=== PATIENT | male | born 1980 | race Caucasian/White ===

== ENCOUNTER 2020-06-27 17:08 | Emergency (ER) | payer OTHER, SELFPAY ==
--- NOTE | 2020-06-27 17:13 | ED.DENTAL ---
HPI - Dental/Oral General Chief complaint: Dental/Oral Stated complaint: oral pain Time Seen by Provider: 06/27/20 17:09 Source: patient Mode of arrival: Ambulatory Limitations: no limitations History of Present Illness HPI Narrative: 39-year-old male nonsmoker noncontributory medical history presents with a chief complaint of severe left lower jaw pain and swelling over the course of the day. He has got a known ?bad ?to with and his dentist has told him he needs a root canal followed by crown. Denies any fever chills no difficulty swallowing though does have pain opening his jaw. He denies fever, chills, N/V Teeth map: 1. Onset (ago): hour(s) Duration: constant Severity: moderate Relieving factors: nothing Exacerbating factors: chewing Context: history of dental caries Treatment prior to arrival: none Related Data Previous Rx's Medication Instructions Recorded amoxicillin-pot clavulanate 1 tab PO BID #20 tab 06/27/20 [Augmentin] Allergies Allergy/AdvReac Type Severity Reaction Status Date / Time No Known Drug Allergies Allergy Verified 06/27/20 18:27 Review of Systems Constitutional Constitutional: Denies chills, Denies fatigue, Denies fever(s), Denies frequent falls, Denies lethargy and Denies weakness Eyes Eyes: Denies change in vision, Denies eye discharge, Denies irritation and Denies loss of vision ENT Ears, Nose, Mouth, and Throat: Denies change in voice, Reports dental pain, Denies dizziness, Denies neck pain, Denies sore throat and Denies throat swelling Comments: facial swelling Cardiovascular Cardiovascular: Denies chest pain, Denies irregular heart rhythm, Denies lightheadedness, Denies palpitations, Denies dyspnea, Denies dyspnea on exertion and Denies orthopnea Respiratory Respiratory: Denies cough, Denies dyspnea, Denies dyspnea on exertion and Denies wheezing Gastrointestinal Gastrointestinal: Denies abdominal pain, Denies change in bowel habits, Denies diarrhea, Denies nausea and Denies vomiting Musculoskeletal Musculoskeletal: Denies neck pain and Denies numbness Integumentary/Breasts Skin/Breast: Denies pruritus, Denies erythema, Denies rash and Denies wounds Neurologic Neurologic: Denies behavioral changes, Denies confusion, Denies dizziness, Denies frequent falls, Denies loss of vision, Denies numbness and Denies weakness Psychiatric Psychiatric: Denies anxiety, Denies behavioral changes, Denies confusion, Denies depression, Denies homicidal ideation and Denies suicidal ideation Endocrine Endocrine: Denies fatigue, Denies flushing and Denies palpitations Hematologic/Lymphatic Hematologic/Lymphatic: Denies easy bruising Allergic/Immunologic Allergic/Immunologic: Denies urticaria, Denies throat swelling and Denies wheezing Patient History Social History Smoking Status: Never smoker alcohol intake frequency: 0-2 drinks per day Substance Use Type: does not use Exam Narrative Exam Narrative: GENERAL: [39] year old patient appears stated age. Well-nourished, well-developed patient, in mild distress. HEAD:Swelling of left lower jaw, no fluctuance, redness. EYES: Pupils equal round and reactive. Extraocular motions intact. No scleral icterus. No injection or drainage. ENT: Poor dentition, noted erosion of #20 without fluctuance or internal swelling. Nose without bleeding, purulent drainage. Throat without erythema, tonsillar hypertrophy or exudate. Airway patent. NECK: Trachea midline. Non tender CARDIOVASCULAR: Regular rate and rhythm without murmurs, gallops, or rubs. RESPIRATORY: Clear to auscultation. Breath sounds equal bilaterally. No wheezes, rales, or rhonchi. GASTROINTESTINAL: Abdomen soft, non-tender, nondistended. EXTREMITIES: No edema or joint tenderness. BACK: Nontender without deformity or crepitance. No flank tenderness. NEURO: AOx3. SKIN: No rash or erythema of visible areas Initial Vital Signs Initial Vital Signs: Vital Signs Temperature 98.5 F 06/27/20 17:15 Pulse Rate 80 06/27/20 17:15 Respiratory Rate 18 06/27/20 17:15 Blood Pressure 169/97 H 06/27/20 17:15 Pulse Oximetry 96 06/27/20 17:15 Course Orders Ordered: Discontinued Medications Hydrocodone Bitart/Acetaminophen (Vicodin 5/325 Prepack) 1 bottle MISC SEEINSTR ONE Stop: 06/27/20 18:13 Last Admin: 06/27/20 18:32 Dose: 1 bottle Documented by: ANTONI Amoxicillin/Clavulanate Potassium (Augmentin 875-125 Mg) 1 tab PO NOW ONE Stop: 06/27/20 18:13 Last Admin: 06/27/20 18:32 Dose: 1 tab Documented by: ANTONI Dexamethasone (Decadron) 10 mg IV NOW ONE Stop: 06/27/20 17:22 Last Admin: 06/27/20 17:30 Dose: 10 mg Documented by: MARTIN Sodium Chloride (Normal Saline 0.9%) 1,000 mls @ 1,000 mls/hr IV BOLUS ONE Stop: 06/27/20 18:20 Last Infusion: 06/27/20 18:56 Dose: 0 mls/hr Documented by: Admin: 06/27/20 17:29 Dose: 1,000 mls/hr Documented by: MARTIN Ampicillin Sodium/Sulbactam (Sodium 3 gm/ Sodium Chloride) 100 mls @ 100 mls/hr IV NOW ONE Stop: 06/27/20 17:22 Last Infusion: 06/27/20 18:56 Dose: 0 mls/hr Documented by: Admin: 06/27/20 17:27 Dose: 100 mls/hr Documented by: MARTIN Ketorolac Tromethamine (Toradol) 15 mg IV NOW ONE Stop: 06/27/20 17:22 Last Admin: 06/27/20 17:30 Dose: 15 mg Documented by: MARTIN Vital Signs Vital signs: Vital Signs - 8 hr 06/27/20 17:15 Temperature 98.5 F Pulse Rate 80 Respiratory Rate 18 Blood Pressure 169/97 H Pulse Oximetry 96 MDM - Dental/Oral Lab Data Result diagrams: 06/27/20 17:25 06/27/20 17:25 Labs: Lab Results 06/27/20 06/27/20 Range/Units 17:25 17:25 WBC 11.1 H (4.5-11.0) X10^3/uL RBC 5.10 (4.5-5.9) X10^6/uL Hgb 15.5 (13.5-17.5) g/dL Hct 44.9 (41-53) % MCV 88.1 (80-100) fL MCH 30.4 (26-34) PG MCHC 34.5 (30-36) % RDW 12.2 (11.6-14.8) % Plt Count 183 (150-400) X10^3/uL Neut % (Auto) 66.7 (50-75) % Lymph % (Auto) 16.1 L (25-40) % [place] % (Auto) 11.0 (3-14) % Eos % (Auto) 5.6 H (2-4) % Baso % (Auto) 0.6 (0-2) % Neut # (Auto) 7400 H (8552-1271) /uL Lymph # (Auto) 1800 (2707-7999) /uL [place] # (Auto) 1200 H (0-900) /uL Eos # (Auto) 600 H (0-450) /uL Baso # (Auto) 100 (0-100) /uL Sodium 139 (137-145) mmol/L Potassium 4.2 (3.4-5.1) mmol/L Chloride 106 (98-107) mmol/L Carbon Dioxide 24 (22-32) mmol/L BUN 14 (9-20) mg/dL Creatinine 0.85 (0.66-1.25) mg/dL Estimated GFR > 60.0 (>60) mL/min BUN/Creatinine Ratio 16.5 (6-22) Glucose 131 H (70-100) mg/dL Calcium 9.2 (8.4-10.2) mg/dL Discharge Plan Departure Patient Disposition: Home Clinical Impression: Toothache, Facial abscess Discharge Date/Time: 06/27/20 18:56 Instructions: Tooth Decay, Tooth Abscess Activity Restrictions/Additional Instructions: *You have been diagnosed with [ dental / facial abscess ] *What to do: *Take medications as directed *Follow up with your dental provider in 2-3 days, call for an appointment. Let them know you were seen in the Emergency Department and that we ask that you be seen in follow up *Return to ER if you should have any new, worsening or concerning symptoms Prescriptions: New amoxicillin-pot clavulanate [Augmentin] 875-125 mg tablet 1 tab PO BID Qty: 20 RF: 0
[2020-06-27 17:15] VITALS: BP 169/97; PULSE 80; RESP 18; TEMP 36.9; O2SAT 96; BMI 33.7
[2020-06-27] MEDS: AMPICILLIN/SULBACTAM 3 GM 3 GM in SODIUM CHLORIDE 0.9% 100 ML IV (17:27)
[2020-06-27] MEDS: SODIUM CHLORIDE 0.9% 1,000 ML 1000 ML IV (17:29)
[2020-06-27] MEDS: KETOROLAC 60 MG/2 ML VIAL 15 MG IV (17:30)
[2020-06-27] MEDS: DEXAMETHASONE 10 MG/ML VIAL IV (17:30)
[2020-06-27 17:38] LABS: Add Manual Diff / Slide Review NO; Basophils Absolute Auto 100 /uL (0-100); Basophils Percent Auto 0.6 % (0-2); Eosinophils Absolute Auto 600 /uL (0-450); Eosinophils Percent Auto 5.6 % (2-4); Hematocrit 44.9 % (41-53); Hemoglobin 15.5 g/dL (13.5-17.5); Lymphocytes Absolute Auto 1800 /uL (1100-4500); Lymphocytes Percent Auto 16.1 % (25-40); Mean Corpuscular HGB Conc 34.5 % (30-36); Mean Corpuscular Hemoglobin 30.4 PG (26-34); Mean Corpuscular Volume 88.1 fL (80-100); Monocytes Absolute Auto 1200 /uL (0-900); Neutrophils Absolute Auto 7400 /uL (1500-7000); Neutrophils Percent Auto 66.7 % (50-75); Platelet Count 183 X10^3/uL (150-400); Red Cell Distribution Width 12.2 % (11.6-14.8); White Blood Cell Count 11.1 X10^3/uL (4.5-11.0)
[2020-06-27 17:45] LABS: BUN Creatinine Ratio 16.5 (6-22); Blood Urea Nitrogen 14 mg/dL (9-20); Calcium 9.2 mg/dL (8.4-10.2); Carbon Dioxide 24 mmol/L (22-32); Chloride 106 mmol/L (98-107); Estimated Glomerular Filt Rate > 60.0 mL/min (>60); Glucose 131 mg/dL (70-100); HEMOLYSIS < 15 (0-50); Potassium 4.2 mmol/L (3.4-5.1); Sodium 139 mmol/L (137-145)
[2020-06-27 18:26] VITALS: BP 130/65; PULSE 98; RESP 16; O2SAT 96
[2020-06-27] MEDS: AMOXICILLIN/CLAV 875/125 MG 1 TAB PO (18:32)
[2020-06-27] MEDS: HYDROCODONE/ACET 5/325 PREPACK 1 BOTTLE MISC (18:32)
[2020-06-27 18:56] VITALS: TEMP 36.8
== END 2020-06-27 18:56 | disposition home or self-care (01) ==
PROVIDERS: Emergency Provider Emergency Medicine
DX: K08.89 Other specified disorders of teeth and supporting structures (principal); K04.7 Periapical abscess without sinus
CPT/HCPCS: 36415; 80048; 85025; 96365; 96375; 99284; J0295; J1100; J1885

== ENCOUNTER 2020-07-08 15:07 | Emergency (ER) | payer OTHER, SELFPAY ==
[2020-07-08 15:12] VITALS: BP 135/81; PULSE 94; RESP 20; TEMP 35.7; O2SAT 97
--- NOTE | 2020-07-08 16:07 | DI.RAD.S_ITS ---
PROCEDURE: XR CHEST 1V INDICATIONS: suspected sepsis TECHNIQUE: One view of the chest was acquired. COMPARISON: None. FINDINGS: Surgical changes and devices: None. Lungs and pleura: There may be mild interstitial infiltrates. No pleural effusions or pneumothorax. Mediastinum: Mediastinal contours appear normal. Heart size is normal. Bones and chest wall: No suspicious bony lesions. Overlying soft tissues appear unremarkable. Right mastectomy. IMPRESSION: Question mild interstitial infiltrates, possibly due to volume overload. No focal consolidations or pleural effusion. Dictated by: Joi Cortes M.D. on 07/08/2020 at 16:38 Approved by: Joi Cortes M.D. on 07/08/2020 at 16:51
--- NOTE | 2020-07-08 16:10 | ED_ITS ---
HPI - General Adult General Chief complaint: Fever Stated complaint: thinks reaction to medication Time Seen by Provider: 07/08/20 16:10 Source: patient Mode of arrival: Ambulatory History of Present Illness HPI narrative: 39-year-old otherwise healthy gentleman presents with worsening dental abscess and facial swelling. He began noting a fever this morning. Problems initially began about 2 weeks ago with increasing pain and tenderness around tooth 19. Was started on amoxicillin noticed slight improvement but not complete resolution. Did contact his dentist and has an appointment on July 17 for the tooth to be extracted. Today with increasing fullness and fever he comes to the ER for further evaluation. He is able to open his jaw completely, to speak completely and has no chest pain, dyspnea or impending airway impingeme nt. Related Data Previous Rx's Medication Instructions Recorded amoxicillin-pot clavulanate 1 tab PO BID #20 tab 06/27/20 [Augmentin] clindamycin HCl 300 mg PO TID #30 cap 07/08/20 Allergies Allergy/AdvReac Type Severity Reaction Status Date / Time No Known Drug Allergies Allergy Verified 06/27/20 18:27 Review of Systems Review of Systems Narrative: Remainder of review of systems including constitutional, ENT, cardiovascular, respiratory, GI, , musculoskeletal, skin, neurologic and psychiatric systems reviewed and are unremarkable except as noted in HPI. Patient History Social History Smoking Status: Never smoker Smoking Status: Never smoker alcohol intake frequency: 0-2 drinks per day Substance Use Type: does not use Exam Narrative Exam Narrative: General: Alert appropriate in no acute distress ENT: Slight swelling around the angle of the jaw on the left. Submandibular and anterior cervical adenopathy on the left side. No trismus. Tooth number 18 and 19 both with significant decay and it is difficult to tell which is actually the offending problem. There was fullness on the buccal side but no pointing abscess Neck: No palpable abnormalities aside from the mild adenopathy Respiratory: Able to speak in full sentences, no obvious respiratory distress Skin: No obvious rashes, warm and dry Neurologic: Grossly intact no obvious asymmetries or abnormalities Psych, appropriate insight and affect, cooperative Initial Vital Signs Initial Vital Signs: Vital Signs Temperature 96.3 F L 07/08/20 15:12 Pulse Rate 94 H 07/08/20 15:12 Respiratory Rate 20 07/08/20 15:12 Blood Pressure 135/81 07/08/20 15:12 Pulse Oximetry 97 07/08/20 15:12 Course Orders Ordered: ED Orders 07/08/20 16:07 XR chest 1V Stat Blood Culture Stat Complete Blood Count AUTO DIFF Stat Comprehensive Metabolic Panel Stat Lactate (Lactic Acid) Stat Lipase Stat Partial Thromboplastin Time Stat Procalcitonin Stat Prothrombin Time INR Stat Sodium Chloride (Normal Saline 0.9%) 1,000 mls @ 1,000 mls/hr IV BOLUS ONE Stop: 07/08/20 17:06 Vital Signs Vital signs: Vital Signs - 8 hr 07/08/20 15:12 Temperature 96.3 F L Pulse Rate 94 H Respiratory Rate 20 Blood Pressure 135/81 Pulse Oximetry 97 Medical Decision Making MDM Narrative Medical decision making narrative: Dental abscess without signs of sepsis or Jam's angina. Will change antibiotics to clindamycin and have him remain on until his dental appointment in 10 days. Reviewed signs and symptoms that would necessitate return to the emergency department. Patient is safe for home discharge Discharge Plan Departure Patient Disposition: Home Clinical Impression: Abscess, dental Instructions: DI for Tooth Abscess Activity Restrictions/Additional Instructions: Thank you for coming in today You do have an abscess that is forming around the 1st molar on the bottom left. You recently finished a course of amoxicillin and reported that it was minimally helpful in symptoms are clearly getting worse when she stopped. I am going to suggest that we change antibiotics to clindamycin and that your remain on this until your extraction appointment with your dentist scheduled for next Monday. Using 400 mg of ibuprofen (2 sjvj-lif-cwrggld pills) and 1 Tylenol every 6 hours can be very helpful in controlling pain. If you have worsening fevers, worsening swelling, feel like your having any difficulty swallowing or breathing or develop new or different symptoms it would be very appropriate to return to the emergency department Prescriptions: New clindamycin HCl 300 mg capsule 300 mg PO TID Qty: 30 RF: 0 No Action amoxicillin-pot clavulanate [Augmentin] 875-125 mg tablet 1 tab PO BID Qty: 20 RF: 0
--- NOTE | 2020-07-08 16:31 | PC.NURSE ---
wishes for no labs or fluids to be given. Is d/cing pt
[2020-07-08 16:41] VITALS: BP 131/101; PULSE 90; RESP 18; O2SAT 96
== END 2020-07-08 16:41 | disposition home or self-care (01) ==
PROVIDERS: Emergency Provider Emergency Medicine
DX: K04.7 Periapical abscess without sinus (principal)
CPT/HCPCS: 71045; 99281; 99283